=== PATIENT | male | born 1990 | race Caucasian/White ===

== ENCOUNTER 2022-04-25 12:10 | Outpatient (REF) | payer OTHER, SELFPAY ==
[2022-04-25 12:22] LABS: MANUAL DIFF FLAG NO
[2022-04-25 13:05] LABS: Basophils Absolute Auto 0.1 X10*3/uL (0.0-0.2); Basophils Percent Auto 0.6 % (0-2); Eosinophils Absolute Auto 0.1 X10*3/uL (0.0-0.4); Eosinophils Percent Auto 0.7 % (0-4); Hematocrit 43.3 % (42.0-52.0); Hemoglobin 14.3 g/dl (14.0-18.0); Imm Gran Abs Auto 0.07 X10*3/uL (0.00-0.03); Imm Gran Pct Auto 0.7 % (0.0-0.4); Lymphocytes Absolute Auto 2.3 X10*3/uL (1.2-4.9); Lymphocytes Percent Auto 22.6 % (20-40); Mean Corpuscular Hemoglobin 28.8 pg (27.0-33.0); Mean Corpuscular Volume 87.3 fL (80.0-98.0); Mean Platelet Volume 10.3 fL (9.4-12.4); Monocytes Absolute Auto 0.8 X10*3/uL (0.1-1.2); Monocytes Percent Auto 7.4 % (2-11); Neutrophils Absolute Auto 6.9 x10*3/uL (2.0-8.3); Platelet Count 319 X10*3/uL (160-400); Red Blood Count 4.96 X10*6/uL (4.60-5.80); Red Cell Distribution Width 13.2 % (11.0-16.0); White Blood Count 10.1 X10*3/uL (4.8-10.8)
[2022-04-25 15:25] LABS: Alanine Aminotransferase 39 U/L (0-40); Albumin Level 4.8 g/dL (3.5-5.0); Alkaline Phosphatase 56 U/L (39-117); Anion Gap 14 (12-20); Aspartate Amino Transferase 19 U/L (5-37); Bilirubin Total 0.2 mg/dL (0.0-1.0); Blood Urea Nitrogen 13 mg/dL (9-16); Calcium 9.6 mg/dL (8.4-10.2); Carbon Dioxide 24 mmol/L (22-29); Chloride 105 mmol/L (96-108); Estimated Glomerular Filt Rate > 60; Glucose Random 89 mg/dL (60-115); Potassium 4.4 mmol/L (3.3-5.1); Sodium 139 mmol/L (135-145); Total Protein 7.2 g/dL (6.5-8.0)
[2022-04-25 20:21] LABS: Estimated Average Glucose 111 mg/dL; Hemoglobin A1c % 5.5 %
== END 2022-04-25 12:11 | disposition home or self-care (01) ==
LOC: HO.LAB 12:10
PROVIDERS: Visit Provider Surgery
DX: R10.9 Unspecified abdominal pain (principal); E66.01 Morbid (severe) obesity due to excess calories; S31.105A Unspecified open wound of abdominal wall, periumbilic region without penetration into peritoneal cavity, initial encounter; Z98.890 Other specified postprocedural states; Z87.19 Personal history of other diseases of the digestive system; Z83.3 Family history of diabetes mellitus
CPT/HCPCS: 36415; 80053; 83036; 85025

== ENCOUNTER 2022-04-27 11:29 | Outpatient (REF) | payer OTHER, SELFPAY ==
--- NOTE | ~2022-04-27 | CT_ITS ---
EXAMINATION: CT ABDOMEN AND PELVIS WITH CONTRAST CLINICAL INFORMATION: Umbilical hernia and drainage. COMPARISON: None TECHNIQUE: Multidetector volumetric images were obtained from the superior aspect of the liver through the pubic symphysis following administration 100 mL of Omnipaque 350 intravenous contrast. Sagittal and coronal reformatted images were obtained on the technologist's workstation. Oral contrast: Yes This CT examination was performed using dose optimization techniques as appropriate, variously including the following: *Automated exposure control *Adjustment of mA and/or kV according to patient size (this includes techniques or standardized protocols for targeted exams where dose is matched to indication/reason for exam; i.e. extremities or head) *Use of iterative reconstruction technique DLP: 963 mGy-cm FINDINGS: LUNG BASES: There is a 4 mm noncalcified subpleural nodule seen within the left lower lobe on image [address] series #6. No pleural or pericardial effusion. LIVER, GALLBLADDER, AND BILIARY TREE: The liver is normal in size, shape, and attenuation. No focal hepatic lesion or biliary ductal dilatation is present. The gallbladder is unremarkable with no evidence of radiopaque gallstones, gallbladder wall thickening, or obvious pericholecystic inflammatory changes. PANCREAS: Unremarkable. SPLEEN: Unremarkable. ADRENAL GLANDS: Unremarkable. KIDNEYS AND URETERS: The kidneys are normal in size, shape, and attenuation. No hydronephrosis, hydroureter, or calculi seen. No perinephric stranding. BLADDER: Unremarkable. GASTROINTESTINAL TRACT: The small and large bowel are unremarkable. The appendix is not identified. No free air or free fluid. No pericolonic inflammatory change. ABDOMINAL WALL: No significant abdominal wall hernia is seen. There is some mild diastasis of the rectus muscles in the supraumbilical region without hernia. About the right midline infraumbilical region there is a small fat-containing hernia measuring approximately 6 mm in width. In the umbilicus there appears be a small amount of edema about the fat with an approximately 1.9 x 1.1 x 1.3 cm of diminished density which may represent fluid within the umbilicus which may be related to inflammatory process. There is no underlying intra-abdominal collection present. LYMPH NODES: No lymphadenopathy identified. VASCULAR: Unremarkable. PELVIC VISCERA: Unremarkable. OSSEOUS STRUCTURES: No destructive bony lesions identified. Degenerative disc disease is seen at the L4-L5 and L5-S1 levels. CT/CT abdomen pelvis w con IMPRESSION: 4 mm noncalcified left lower lobe subpleural nodule. Small fluid collection within the umbilicus with minimal surrounding inflammatory change within the fat and with no intra-abdominal process identified. According to the UPDATED 2017 Fleischner Society recommendations, the advised follow-up imaging for solid nodules < 6 mm is: LOW RISK PATIENT: No routine follow-up. HIGH RISK PATIENT: Optional CT at 12 months. Fleischner guidelines were followed.
[2022-04-27] MEDS: iohexoL 350 MG/ML 100 ML INFUS..BTL 85 ML IV (14:18)
[2022-04-27] MEDS: Barium Sulfate Oral (Vanilla) 450 ML ORAL.SUSP 900 ML PO (14:19)
== END 2022-04-27 11:30 | disposition home or self-care (01) ==
LOC: HO.CT 11:29
PROVIDERS: Visit Provider Surgery
DX: E66.01 Morbid (severe) obesity due to excess calories (principal); S31.105A Unspecified open wound of abdominal wall, periumbilic region without penetration into peritoneal cavity, initial encounter; Z98.890 Other specified postprocedural states; Z87.19 Personal history of other diseases of the digestive system; Z83.3 Family history of diabetes mellitus
CPT/HCPCS: 74177; Q9967

== ENCOUNTER 2022-08-11 06:59 | Day surgery (SDC) | payer OTHER, SELFPAY ==
[2022-08-05 12:45] VITALS: BMI 44.6
--- NOTE | 2022-08-10 13:13 | HO.ANESPROP2 ---
Documented by User: Inga Jordan NP 08/10/22 13:14 HPI - Anesthesia Eval Consult details Narrative: 32yo M for Umbilectomy PMFSH Active Problems Active Problems: All Active Problems (Updated 08/05/22 @ 12:46 by Tish Mcleod RN) Open wound of umbilical region (Acute) Morbid (severe) obesity due to excess calories (Acute) Family history of diabetes mellitus in first degree relative (Acute) Non-restorative sleep (Acute) Past Medical History Medical History (Updated 08/05/22 @ 12:46 by Tish Mcleod RN) Obesity Family History Family History Maternal Grandfather Basal cell carcinoma Maternal Grandmother Cancer of unknown origin Father Hypertension Mother Diabetes Surgical History Surgical History History of hernia surgery Social History Social History Alcohol intake: current Alcohol intake frequency: a few times a week Patient Tobacco Use Status: Never used Tobacco Use of substances other than those prescribed or required for medical reasons: No Are you DNR?: No Advance Directives: No Advance Directives Information Provided: Yes Meds Allergies Allergy/AdvReac Type Severity Reaction Status Date / Time No Known Allergies Allergy Verified 08/11/22 07:43 Home Medications Medication Instructions Recorded Confirmed Last Taken Type Claritin 1 tab PO DAILY 08/11/22 08/11/22 Unknown History Exam Exam Date and Time: August 10, 2022 1313 Height,Weight and Vital Signs: Height 5 ft 9 in Weight 137 kg Pertinent Lab Results Pertinent Lab Results: Laboratory Tests 04/25/22 04/25/22 12:21 12:21 WBC 10.1 Hgb 14.3 Hct 43.3 Plt Count 319 Sodium 139 Potassium 4.4 Chloride 105 Carbon Dioxide 24 BUN 13 Creatinine 1.05 Assessment and Plan Assessment Anesthesia Assessment: Chart Reviewed Documented by User: Lee Villanueva MD 08/11/22 08:44 [facility] Past Medical History Medical History (Updated 08/05/22 @ 12:46 by Tish Mcleod RN) Obesity Family History Family History Maternal Grandfather Basal cell carcinoma Maternal Grandmother Cancer of unknown origin Father Hypertension Mother Diabetes Family history of problems with anesthesia: No Surgical History Surgical History History of hernia surgery History of Problems with Anesthesia: No Social History Social History Alcohol intake: current Alcohol intake frequency: a few times a week Patient Tobacco Use Status: Never used Tobacco Use of substances other than those prescribed or required for medical reasons: No Are you DNR?: No Advance Directives: No Advance Directives Information Provided: Yes Meds Allergies Allergy/AdvReac Type Severity Reaction Status Date / Time No Known Allergies Allergy Verified 08/11/22 07:43 Home Medications Medication Instructions Recorded Confirmed Last Taken Type Claritin 1 tab PO DAILY 08/11/22 08/11/22 Unknown History Exam Airway Mallampati Class: III TM Dist: >3cm Neck ROM: Full Loose/Missing/Broken Teeth: No Heart: rrr+[id number] Lungs: cta b/l Assessment and Plan Final Anesthetic Review Family History of Problems with Anesthesia: No History of Problems with Anesthesia: No NPO: Yes ASA Class: III Final Preanesthetic Review: No Changes in Pt Med Stat, Meds/Allgs Chart Reviewed, Consent Obtained/Reviewed and Anes Risks/Benef Reviewed Patient Risk: Intermediate Procedure Risk: Intermediate Assessment/Block/Sedation in SS: Assess/Block/Sedation-SS Anesthetic Plan Anesthetic Plan: MAC: and Agree w/ Assess. and Plan Disposition: Standard PACU
[2022-08-11 07:44] VITALS: BMI 44.3
[2022-08-11 07:52] VITALS: BP 180/95; PULSE 94; RESP 16; TEMP 36.4; O2SAT 96
[2022-08-11] MEDS: Lactated Ringers 1,000 ML 100 ML IVCONT (08:23)
--- NOTE | 2022-08-11 09:38 | MHC.SHP ---
Pre-Procedural Eval Section A Date of Service: 08/11/22 The patient is an INPATIENT: No The History & Physical has been completed within 30 days and I have reviewed it.: Yes Section B Chief Complaint: Unspecified open wound of abdominal wall, periumbi Allergies: Allergies Allergy/AdvReac Type Severity Reaction Status Date / Time No Known Allergies Allergy Verified 08/11/22 07:43 Plan I have reviewed the history and physical and performed a pertinent physical examination on my patient. No changes have occurred unless specified.
--- NOTE | 2022-08-11 09:59 | P.OP_ITS ---
Operative Note Operative Note Date of Service: 08/11/22 Narrative: Preop diagnosis: [Recurrent umbilical infections] Postop diagnosis: [Same] Procedure: [Umbilicus to me] Surgeon: Reji Lindquist MD Assist: [none] Anesthesia: [MAC; local 2% xylocaine/Ropivicaine, 0.5% in 50 50 mix] Estimated blood loss: [3cc] Specimen: [Periumbilical skin and umbilicus] Intraoperative findings: [No umbilical hernia; prior hernia repair intact. no active infection] Indications: [The patient is a 32-year-old gentleman who is had several years of recurrent umbilical infections. There was an attempted hernia repair of a tiny hernia with no mesh, but in spite of this, the patient, due to his her suit habitus and deep umbilicus and inability to keep it clean, continued to have infections. The option of umbilectomy which would completely remove the umbilicus was offered. The other option of a 2nd opinion was also reviewed with the patient. Ultimately, after his last infection, he wanted to proceed with removal of his umbilicus which would mean a horizontal scar would replace his u mbilicus. The inherent risks of bleeding, infection, scar, need for another procedure in the event of a complication were all reviewed with the patient and seemed to be understood. Activity restrictions following the procedure were also reviewed and apparently understood. The patient is not disabled in the postoperative phase and can perform light duty after 3-7 days.] Procedure: [The patient was identified in preoperative holding and again in the operating room. He was placed supine on the table and mac was administered. Sequential compression stockings were in place and he received weight based antibiotic treatment. He was placed supine on the table and MAC administered with excellent effect. His abdominal hair had been clipped in preoperative holding. Local was infiltrated around the umbilicus. A planned incision encompassing the umbilicus measuring 20 by 80 mm was drawn and local infiltrated with excellent effect. Next, the elliptical incision which was planned was made sharply and carried into the subcutaneous tissues through previous scar tissue from the prior umbilical hernia repair. A probe was placed in the umbilicus to confirm that the deep stalk was completely excised. Dissection was carried down to the anterior fascia and the specimen sent for permanent section. I could visualize the prior sutures from the prior umbilical hernia repair and no residual granulation tissue or umbilical hernias noted. The area was irrigated and a layered closure using interrupted 3-0 Polysorb and skin jim performed. The patient tolerated the procedure well and was sent to the recovery in stable condition. All sponge instrument counts were correct x2. At the patient's request, I a attempted to contact Ga, his stepmother, at [phone] however there was no answer to of 2 phone calls, so a message stating that Jameel did well with surgery and the recovery room nurses would be in touch within the hour was left. ]
[2022-08-11 10:53] VITALS: BP 160/98; PULSE 88; RESP 28; TEMP 36.1; O2SAT 96
[2022-08-11 11:08] VITALS: BP 161/99; PULSE 85; RESP 18; TEMP 36.1; O2SAT 97
== END 2022-08-11 11:54 | disposition home or self-care (01) ==
PROVIDERS: PCP Internal Medicine; Visit Provider Surgery
PROC: (CPT 49250; principal; 2022-08-11 09:10)
DX: L08.82 Omphalitis not of newborn (principal); L03.316 Cellulitis of umbilicus; E66.01 Morbid (severe) obesity due to excess calories; Z68.41 Body mass index [BMI] 40.0-44.9, adult; L68.0 Hirsutism; Z83.3 Family history of diabetes mellitus; L98.6 Other infiltrative disorders of the skin and subcutaneous tissue; L90.5 Scar conditions and fibrosis of skin; Z98.890 Other specified postprocedural states
CPT/HCPCS: 49250; 88304; J0690; J2250; J2795; J3010